=== PATIENT | female | born 1970 | race Caucasian/White ===

== ENCOUNTER 2017-11-11 17:23 | Emergency (ER) | payer OTHER ==
[~2017-11-11] VITALS: Ht 157.5 cm; Wt 70.9 kg
[2017-11-11 17:50] VITALS: TEMP 36.8; Ht 157.5 cm; Wt 70.9 kg
[2017-11-11 19:46] LABS: BASO % 0.3 %; BASO ABS # 0.02 K/uL (0-0.2); EOS % 0.1 %; EOS ABS # 0.01 K/uL (0-0.5); HEMATOCRIT 36.2 % (37-47); HEMOGLOBIN 11.5 g/dL (12.0-16.0); IG# 0.02 K/uL (0.00-0.02); LYMPH % 20.6 %; LYMPH ABS # 1.64 K/uL (1.2-3.4); MEAN CELL VOLUME 77.4 fL (80-100); MEAN CORPUSCULAR HEMOGLOBIN 24.6 pg (25-34); MEAN CORPUSCULAR HGB CONC 31.8 g/dl (32-36); MEAN PLATELET VOLUME 8.7 fL (7.4-10.4); MONO % 8.4 %; MONO ABS # 0.67 K/uL (0.11-0.59); NEUT % 70.3 %; NEUT ABS # 5.59 K/uL (1.4-6.5); PLATELET COUNT 367 K/uL (130-400); RED CELL DISTRIBUTION WIDTH CV 16.7 % (11.5-14.5); RED CELL DISTRIBUTION WIDTH SD 47.1 fL (36.4-46.3); WHITE BLOOD COUNT 7.95 K/uL (4.8-10.8)
[2017-11-11] MEDS ORDERED: ATEN-173 PO (20:01)
[2017-11-11] MEDS ORDERED: AMIT25TA9 PO (20:01)
[2017-11-11] MEDS ORDERED: PRLSR20 PO (20:01)
[2017-11-11] MEDS ORDERED: ASPI81TA28 PO (20:01)
[2017-11-11] MEDS ORDERED: IBUP-1450 PO (20:01)
[2017-11-11] MEDS ORDERED: ZOLP5TAB PO (20:01)
[2017-11-11] MEDS ORDERED: LEVO100T7 PO (20:01)
[2017-11-11 20:25] LABS: ALBUMIN 3.7 gm/dl (3.4-5.0); ALT/SGPT 29 U/L (12-78); BLOOD UREA NITROGEN 14 mg/dl (7-18); CALCIUM 8.7 mg/dl (8.5-10.1); CARBON DIOXIDE 25 mmol/L (21-32); CREATININE 0.83 mg/dl (0.60-1.20); GLUCOSE 88 mg/dl (70-99); LIPASE 178 U/L (73-393); POTASSIUM 4.1 mmol/L (3.5-5.1); SODIUM 139 mmol/L (136-145)
[2017-11-11 20:30] LABS: ALKALINE PHOSPHATASE 47 U/L (45-117); AST/SGOT 23 U/L (15-37); CKMB 1.2 ng/ml (0.5-3.6); TOTAL PROTEIN 7.6 gm/dl (6.4-8.2)
--- NOTE | 2017-11-11 21:00 | DIAGNOSTIC IMAGING REPORT ---
SINGLE VIEW CHEST CLINICAL HISTORY: Atypical chest pain. FINDINGS: An AP, portable, upright chest radiograph is obtained. No prior studies are available for comparison at the time of dictation. The examination is degraded by portable technique and patient rotation. The cardiomediastinal silhouette is unremarkable. The lungs and pleural spaces are clear. No pneumothorax is seen. The bony thorax is grossly intact. IMPRESSION: No acute cardiopulmonary abnormality. Electronically signed by: Robert Ramachandran M.D. 11/11/2017 8:59 PM Dictated Date/Time: 11/11/2017 8:58 PM
[2017-11-11 21:52] VITALS: BP 127/74; PULSE 67; O2SAT 99
--- NOTE | 2017-11-11 21:54 | EMERGENCY ROOM VISIT NOTE ---
History Report prepared by Wendy: Génesis Rosenberg Under the Supervision of: Dr. Renaldo Chang M.D. First contact with patient: 18:41 Chief Complaint: ILLNESS Stated Complaint: SICK,BACK/CHEST PAIN,1 MTH,BRONCHITIS,PNEUMONIA History of Present Illness The patient is a 47 year old female who presents to the Emergency Room with complaints of persistent chest pain starting 2 nights ago. The patient has been sick with cough and low grade fever for the past month. She started getting sick around the time her had the flu. She has been to urgent care multiple times and been on antibiotics, steroids, and inhalers. Her symptoms have been persistent. 2 nights ago, she started having chest pain which she describes as a pressure. She is also having pain in her back. She has not had this pain before. She called her PCP today and was sent to the ED. She denies any leg pain, leg swelling, post nasal drip, or rash. The patient returned from a trip to [place] 5 days ago. She has a history of fibromyalgia, migraines, mitral valve prolapse, acid reflux, and possible TIA. She denies any history of other heart problems. She does not smoke. She notes she often gets bronchitis. She denies any history of asthma. Source of History: patient Onset: 2 nights ago Position: chest Quality: pressure Timing: other (persistent) Associated Symptoms: + fevers (low grade), + cough, + back pain, No rash Review of Systems See HPI for pertinent positives & negatives. A total of 10 systems reviewed and were otherwise negative. Past Medical & Surgical Medical Problems: (1) Fibromyalgia (2) Migraine (3) Mitral valve prolapse Old medical records were reviewed. Nurse's notes were reviewed and I agree with. Family History No pertinent family history stated. Social History Smoking Status: Never Smoker Marital Status: Housing Status: lives with family Current/Historical Medications Scheduled Amitriptyline Hcl (Elavil), 25 MG PO DAILY Aspirin (Aspirin Ec), 81 MG PO DAILY Atenolol (Tenormin), 12.5 MG PO DAILY Levothyroxine Sodium (Levothyroxine Sodium), 1 TAB PO DAILY Omeprazole (Prilosec), 20 MG PO DAILY Scheduled PRN Ibuprofen (Motrin), 600 MG PO TID PRN for Pain Zolpidem Tartrate (Ambien), 1 TAB PO HS PRN for Sleep Allergies Coded Allergies: Clarithromycin (Verified Adverse Reaction, Severe, VOMITING, 11/11/17) Physical Exam Vital Signs Date Time Temp Pulse Resp B/P (MAP) Pulse Ox O2 Delivery O2 Flow Rate FiO2 11/11/17 21:52 67 127/74 99 11/11/17 20:50 76 130/69 99 Room Air 11/11/17 17:50 36.8 86 18 146/85 99 Room Air Physical Exam General: Non-ill appearing middle age female intermittent dry cough in no acute distress. HEENT: Normal cephalic atraumatic. Pupils are equal round and reactive to light. Extraocular movements are intact. Oropharynx is pink with moist mucous membranes. No swelling of the mouth lips or tongue. Neck: Supple with a midline trachea. No meningeal signs or stiffness, no JVD or bruits. No Stridor. Chest: Clear to auscultation bilaterally. No wheezes or rhonchi. No increased work of breathing. Heart: regular rate and rhythm. Abdomen: Soft nontender, nondistended without rebound guarding or rigidity. Extremities: No cyanosis clubbing or edema. No calf tenderness or assymetry Spine/Back. Non tender to palpation. No CVA tenderness Skin: Good turgor without rashes. Neurologic exam: Cranial nerves two through 12 are intact. Motor and sensation are intact and symmetrical throughout. Medical Decision & Procedures ER Provider Diagnostic Interpretation: X-ray results as stated below per interpretation by me and the radiologist: SINGLE VIEW CHEST CLINICAL HISTORY: Atypical chest pain. FINDINGS: An AP, portable, upright chest radiograph is obtained. No prior studies are available for comparison at the time of dictation. The examination is degraded by portable technique and patient rotation. The cardiomediastinal silhouette is unremarkable. The lungs and pleural spaces are clear. No pneumothorax is seen. The bony thorax is grossly intact. IMPRESSION: No acute cardiopulmonary abnormality. Electronically signed by: Robert Ramachandran M.D. 11/11/2017 8:59 PM Dictated Date/Time: 11/11/2017 8:58 PM Laboratory Results 11/11/17 18:27 Red Blood Count 4.68, Mean Corpuscular Volume 77.4, Mean Corpuscular Hemoglobin 24.6, Mean Corpuscular Hemoglobin Concent 31.8, Mean Platelet Volume 8.7, Neutrophils (%) (Auto) 70.3, Lymphocytes (%) (Auto) 20.6, Monocytes (%) (Auto) 8.4, Eosinophils (%) (Auto) 0.1, Basophils (%) (Auto) 0.3, Neutrophils # (Auto) 5.59, Lymphocytes # (Auto) 1.64, Monocytes # (Auto) 0.67, Eosinophils # (Auto) 0.01, Basophils # (Auto) 0.02 11/11/17 18:27 Test 11/11/17 18:27 11/11/17 19:30 White Blood Count 7.95 K/uL (4.8-10.8) Red Blood Count 4.68 M/uL (4.2-5.4) Hemoglobin 11.5 g/dL (12.0-16.0) Hematocrit 36.2 % (37-47) Mean Corpuscular Volume 77.4 fL (80-100) Mean Corpuscular Hemoglobin 24.6 pg (25-34) Mean Corpuscular Hemoglobin Concent 31.8 g/dl (32-36) Platelet Count 367 K/uL (130-400) Mean Platelet Volume 8.7 fL (7.4-10.4) Neutrophils (%) (Auto) 70.3 % Lymphocytes (%) (Auto) 20.6 % Monocytes (%) (Auto) 8.4 % Eosinophils (%) (Auto) 0.1 % Basophils (%) (Auto) 0.3 % Neutrophils # (Auto) 5.59 K/uL (1.4-6.5) Lymphocytes # (Auto) 1.64 K/uL (1.2-3.4) Monocytes # (Auto) 0.67 K/uL (0.11-0.59) Eosinophils # (Auto) 0.01 K/uL (0-0.5) Basophils # (Auto) 0.02 K/uL (0-0.2) RDW Standard Deviation 47.1 fL (36.4-46.3) RDW Coefficient of Variation 16.7 % (11.5-14.5) Immature Granulocyte % (Auto) 0.3 % Immature Granulocyte # (Auto) 0.02 K/uL (0.00-0.02) D-Dimer 220 ug/L FEU (0-500) Anion Gap 7.0 mmol/L (3-11) Est Creatinine Clear Calc Drug Dose 76.5 ml/min Estimated GFR () 96.6 Estimated GFR (Non- 83.4 BUN/Creatinine Ratio 16.6 (10-20) Calcium Level 8.7 mg/dl (8.5-10.1) Total Bilirubin 0.4 mg/dl (0.2-1) Direct Bilirubin < 0.1 mg/dl (0-0.2) Aspartate Amino Transf (AST/SGOT) 23 U/L (15-37) Alanine Aminotransferase (ALT/SGPT) 29 U/L (12-78) Alkaline Phosphatase 47 U/L (45-117) Total Creatine Kinase 133 U/L (26-192) Creatine Kinase MB 1.2 ng/ml (0.5-3.6) Creatine Kinase MB Ratio 0.9 (0-3.0) Total Protein 7.6 gm/dl (6.4-8.2) Albumin 3.7 gm/dl (3.4-5.0) Lipase 178 U/L (73-393) Human Chorionic Gonadotropin, Qual NEG (NEG) Bedside Troponin I < 0.030 ng/ml (0-0.045) Laboratory studies as stated above per my review. ECG Per My Interpretation Indication: chest pain Rate (beats per minute): 70 Rhythm: normal sinus Findings: 1st degree AV block, no acute ischemic change, no ectopy Comparison ECG Date: no prior available ED Course 1849: Past medical records reviewed. The patient was evaluated in room A12B, and a complete history and physical examination were performed. 2034: I reevaluated the patient. She is waiting for X-ray. 2139: Upon reevaluation, the patient is doing better. I discussed the results and treatment plan with her. She verbalized agreement of the treatment plan. The patient was discharged home. Medical Decision Differentials include, but are not limited to; bronchitis, viral illness, pneumonia, cardiac disease, costochondritis, PE. This patient comes in as described above she has had a persistent cough. She looks well on exam. She has occasional cough. She has been on antibiotics include azithromycin so that should have covered atypical pathogen such as pertussis. She is not hypoxemic and is stable vital signs. She called her doctor's office and she has chest pain primarily with coughing so they sent her here. Her history does not sound likely cardiac. EKG was obtained and shows normal sinus rhythm without acute ischemic changes or ectopy. Her troponin is not elevated. Chest x-ray was unremarkable and does not suggest congestive heart failure, pneumonia, or pneumothorax. She has no acute electrolyte or metabolic ab normalities. Her d-dimer is within normal limits and in a low pretest probability setting makes PE highly unlikely. She feels good and would like to go home. She is going to finish her steroids that were started the other day. I recommended she take an [id number] cough medication such as Robitussin-DM or Delsym rest and drink plenty fluids. Return if: worsening of symptoms, shortness of breath, any new problems or concerns. She is to follow a regular doctor this week for recheck. She is happy to plan and discharged to home. Medication Reconcilliation Current Medication List: was personally reviewed by me Blood Pressure Screening Patient's blood pressure: Elevated blood pressure Blood pressure disposition: Elevated BP felt to be situational Impression Primary Impression: Bronchitis Additional Impression: Cough Scribe Attestation The scribe's documentation has been prepared under my direction and personally reviewed by me in its entirety. I confirm that the note above accurately reflects all work, treatment, procedures, and medical decision making performed by me. Departure Information Dispostion Home / Self-Care Referrals Lenore Dick D.O. Forms HOME CARE DOCUMENTATION FORM, IMPORTANT VISIT INFORMATION, WORK / SCHOOL INSTRUCTIONS Patient Instructions [facility] Additional Instructions Rest Drink plenty of fluids Continue your cough medications and prednisone Use Ibuprofen 400mg every 6 hours as needed. Take with food Follow-up with your doctor this week for recheck REturn if: worsening of symptoms, shortness of breath, any new problems or concerns Problem Qualifiers
== END 2017-11-11 21:53 | disposition home or self-care (01) ==
LOC: C.EDB 17:26 → C.EDA 21:53
DX: J40 Bronchitis, not specified as acute or chronic (principal); R05 Cough; R50.9 Fever, unspecified